=== PATIENT | female | born 1960 | race Caucasian/White ===

== ENCOUNTER 2016-06-10 19:51 | Emergency (ER) | payer BC ==
--- NOTE | 2016-06-10 22:52 | ER Document Report ---
ED General - General Chief Complaint: Flu Symptoms Stated Complaint: FEVER,HEADACHE,SORE THROAT,COUGH Time seen by provider: 22:50 Notes: Patient is a 56-year-old female that comes emergency department for chief complaint of 2 days of cough, fever, sinus pressure and congestion, ear pain bilaterally, and sore throat. She also reports pain in the front of her lymph nodes on her neck. These pain, shortness of breath, headache. She works at a daycare. Asked medical history of a defibrillation, treated, on eliquis. TRAVEL OUTSIDE OF THE [place] IN LAST 30 DAYS: Codi Bertrand was in [place] recently - Related Data Allergies/Adverse Reactions: Sulfa (Sulfonamide Antibiotics) Allergy (Intermediate, Verified 11/10/13 18:41) Past Medical History - General Information source: Patient - Social History Smoking Status: Never Smoker Frequency of alcohol use: None Drug Abuse: None Lives with: Family Family History: Arthritis, CAD, Hyperlipidemia, Hypertension, Malignancy Patient has suicidal ideation: No Patient has homicidal ideation: No - Past Medical History Cardiac Medical History: Reports: Hx Atrial Fibrillation, Hx Hypertension Neurological Medical History: Reports: Hx Migraine Renal/ Medical History: Denies: Hx Peritoneal Dialysis GI Medical History: Reports: Hx Ulcer Psychiatric Medical History: Reports: Hx Depression Past Surgical History: Reports: Hx Section - X2 - Immunizations Immunizations up to date: No Hx Diphtheria, Pertussis, Tetanus Vaccination: No Review of Systems - Review of Systems Constitutional: See HPI EENT: See HPI Cardiovascular: No symptoms reported Respiratory: See HPI Gastrointestinal: No symptoms reported Genitourinary: No symptoms reported Female Genitourinary: No symptoms reported Musculoskeletal: No symptoms reported Skin: No symptoms reported Hematologic/Lymphatic: No symptoms reported Neurological/Psychological: No symptoms reported Physical Exam - Vital signs Vitals: Temp Pulse Resp BP Pulse Ox 99.9 F 81 16 149/74 H 98 06/10/16 20:38 06/10/16 20:38 06/10/16 20:38 06/10/16 20:38 06/10/16 20:38 Interpretation: Normal - General General appearance: Appears well, Alert In distress: None - HEENT Head: Normocephalic, Atraumatic Eyes: Normal Conjunctiva: Normal Extraocular movements intact: Yes Eyelashes: Normal Pupils: PERRL Ears: Normal External canal: Normal Tympanic membrane: Serous effusion - Borderline right-sided serous effusion Sinus: Tenderness - Vague nonspecific mild tenderness, no notable tenderness. No: Frontal Nasal: Other - Sinus congestion and nasal congestion Mouth/Lips: Normal Mucous membranes: Normal Pharynx: Erythema - Mild, some postnasal drip. No: Retropharyngeal abscess, Tonsillar hypertrophy, Uvular edema, Potential airway comprom. Neck: Normal - Respiratory Respiratory status: No respiratory distress. No: Respiratory distress, Retractions, Tachypnea Chest status: Nontender Breath sounds: Nonproductive cough - Occasional. No: Decreased air movement, Wheezing Chest palpation: Normal - Cardiovascular Rhythm: Regular. No: Irregularly irregular, Tachycardia Heart sounds: Normal auscultation, S1 appreciated, S2 appreciated Murmur: No - Abdominal Inspection: Normal Distension: No distension Bowel sounds: Normal Tenderness: Nontender Organomegaly: No organomegaly - Back Back: Normal, Nontender - Extremities General upper extremity: Normal inspection, Nontender, Normal color, Normal ROM , Normal temperature General lower extremity: Normal inspection, Nontender, Normal color, Normal ROM , Normal temperature, Normal weight bearing. No: Edith's sign - Neurological Neuro grossly intact: Yes Cognition: Normal Orientation: AAOx4 [place] Coma Scale Eye Opening: Spontaneous [place] Coma Scale Verbal: Oriented [place] Coma Scale Motor: Obeys Commands [place] Coma Scale Total: 15 Speech: Normal Motor strength normal: LUE, RUE, LLE, RLE Sensory: Normal - Psychological Associated symptoms: Normal affect, Normal mood - Skin Skin Temperature: Warm Skin Moisture: Dry Skin Color: Normal Course - Re-evaluation Re-evalutation: Patient is not tachycardic or hypotensive, or febrile. Patient is actually very well appearing with complaints of sinus congestion and pressure, what appears to be postnasal drip on exam, intermittent cough. Clear lungs on auscultation, unremarkable pharynx, soft abdomen, no complaints of chest pain, no nuchal rigidity or complaints of headache. Chest x-ray unremarkable, strep negative. Discussed with patient, after discussion will cover with doxycycline for sinus infection and to prevent pneumonia based on patient's ongoing and worsening symptoms. Recommended close primary care follow-up, discussed return precautions in detail, patient states satisfaction and agreement. - Vital Signs Vital signs: Temp Pulse Resp BP Pulse Ox 98.3 F 59 L 18 133/60 H 99 06/11/16 02:25 06/11/16 02:25 06/11/16 02:25 06/11/16 02:25 06/11/16 02:25 Discharge - Discharge Clinical Impression: Cough Sinusitis Qualifiers: Sinusitis location: frontal Chronicity: acute Recurrence: non-recurrent Qualified Code(s): J01.10 - Acute frontal sinusitis, unspecified Pharyngitis Qualifiers: Pharyngitis/tonsillitis etiology: unspecified etiology Qualified Code(s): J02.9 - Acute pharyngitis, unspecified Condition: Stable Disposition: HOME, SELF-CARE Additional Instructions: Strep test is negative, chest x-ray does not show pneumonia. Take doxycycline as directed for sinus infection and prevent development of pneumonia. Take Flonase as directed, take Tylenol or ibuprofen for fever, drink plenty of fluids and rest. Follow-up with your provider within the next several days. Return the emergency department for any concerning worsening symptoms including difficulty breathing. Prescriptions: Doxycycline Hyclate 100 mg PO BID #14 capsule
[2016-06-11] MEDS ORDERED: ACETAMINOPHEN 325 MG TABLET PO ONE (00:09)
[2016-06-11] MEDS ORDERED: DOXYCYCLINE HYCLATE 100 MG TABLET PO ONE (01:30)
[2016-06-11 02:26] VITALS: BP 133/60
== END 2016-06-11 01:35 | disposition home or self-care (01) ==
LOC: ER 19:51
DX: J01.10 Acute frontal sinusitis, unspecified (principal); R05 Cough; J02.9 Acute pharyngitis, unspecified; R50.9 Fever, unspecified; R51 Headache; I48.91 Unspecified atrial fibrillation; I10 Essential (primary) hypertension; Z79.02 Long term (current) use of antithrombotics/antiplatelets; Z88.2 Allergy status to sulfonamides
CPT/HCPCS: 71020; 87070; 87077; 87880; 99283

== ENCOUNTER 2016-09-03 18:50 | Emergency (ER) | payer BC ==
--- NOTE | 2016-09-03 20:24 | RADIOLOGY REPORT (SQ) ---
EXAM DESCRIPTION: CHEST SINGLE VIEW COMPLETED DATE/TIME: 09/03/2016 8:14 pm REASON FOR STUDY: chest pain COMPARISON: 06/10/2016 EXAM PARAMETERS: NUMBER OF VIEWS: One view. TECHNIQUE: Single frontal radiographic view of the chest acquired. RADIATION DOSE: NA LIMITATIONS: None. FINDINGS: LUNGS AND PLEURA: No opacities, masses or pneumothorax. No pleural effusion. MEDIASTINUM AND HILAR STRUCTURES: No masses. Contour normal. HEART AND VASCULAR STRUCTURES: Heart normal in size. Normal vasculature. BONES: No acute findings. HARDWARE: None in the chest. OTHER: No other significant finding. IMPRESSION: NO ACUTE RADIOGRAPHIC FINDING IN THE CHEST. TECHNICAL DOCUMENTATION: JOB ID: [id number]
[2016-09-03] MEDS ORDERED: KETOROLAC TROMETHAMINE INJ/PF 30 MG/1 ML SDV IV ONE (20:31)
[2016-09-03] MEDS ORDERED: NORMAL SALINE 1000 ML 1,000 ML IV ONE (20:31)
--- NOTE | 2016-09-03 20:35 | ER Document Report ---
ED General - General Chief Complaint: Palpitations Stated Complaint: CHEST PAIN Time Seen by Provider: 09/03/16 19:44 Notes: Patient is a 56-year-old female with a past medical history of atrial fibrillation, bradycardia, who presents with multiple complaints. Patient primarily concerned complains of palpitations and episodes of bradycardia throughout the day today. Patient states she has had similar symptoms in the past but they typically do not last this long. Nothing improves or worsens her symptoms. States she has been taking all medications as directed. She has not seen her primary doctor or crm functional analyst regarding today's concerns. She does also complain of ongoing left flank pain which is a dull, constant, aching pain. Nothing improves or worsens the pain. She states she was recently treated with doxycycline for urinary tract infection is concerned that it may have not cleared. She has had several episodes of vomiting today which again she also notes that her baseline. TRAVEL OUTSIDE OF THE [place] IN LAST 30 DAYS: No - Related Data Allergies/Adverse Reactions: Cephalosporins Allergy (Intermediate, Verified 09/03/16 22:48) Anaphylaxis Sulfa (Sulfonamide Antibiotics) Allergy (Intermediate, Verified 09/03/16 22:48) Anaphylaxis Past Medical History - General Information source: Patient - Social History Smoking Status: Never Smoker Frequency of alcohol use: None Drug Abuse: None Lives with: Family Family History: Arthritis, CAD, Hyperlipidemia, Hypertension, Malignancy - Past Medical History Cardiac Medical History: Reports: Hx Atrial Fibrillation, Hx Hypertension Neurological Medical History: Reports: Hx Migraine Renal/ Medical History: Denies: Hx Peritoneal Dialysis GI Medical History: Reports: Hx Ulcer Psychiatric Medical History: Reports: Hx Depression Past Surgical History: Reports: Hx Section - X2 - Immunizations Immunizations up to date: No Hx Diphtheria, Pertussis, Tetanus Vaccination: No Review of Systems - Review of Systems Notes: Constitutional: Negative for fever. HENT: Negative for sore throat. Eyes: Negative for visual changes. Cardiovascular: Negative for chest pain. Positive for palpitations Respiratory: Negative for shortness of breath. Gastrointestinal: Positive for vomiting. Positive flank pain Genitourinary: Negative for dysuria. Musculoskeletal: Negative for back pain. Skin: Negative for rash. Neurological: Negative for headaches, weakness or numbness. 10 point ROS negative except as marked above and in HPI. Physical Exam - Vital signs Vitals: Temp Pulse Resp BP Pulse Ox 98.0 F 66 16 160/90 H 98 09/03/16 19:05 09/03/16 19:05 09/03/16 19:05 09/03/16 19:05 09/03/16 19:05 Interpretation: Hypertensive Notes: PHYSICAL EXAMINATION: GENERAL: Well-appearing, well-nourished and in no acute distress. HEAD: Atraumatic, normocephalic. EYES: Pupils equal round and reactive to light, extraocular movements intact, sclera anicteric, conjunctiva are normal. ENT: nares patent, oropharynx clear without exudates. Moderately dry mucous membranes. NECK: Normal range of motion, supple without lymphadenopathy LUNGS: Breath sounds clear to auscultation bilaterally and equal. No wheezes rales or rhonchi. HEART: Regular rate and rhythm without murmurs ABDOMEN: Soft, nontender, normoactive bowel sounds. No guarding, no rebound. No masses appreciated. Left CVA tenderness to palpation EXTREMITIES: Normal range of motion, no pitting or edema. No cyanosis. NEUROLOGICAL: No focal neurological deficits. Moves all extremities spontaneously and on command. PSYCH: Normal mood, normal affect. SKIN: Warm, Dry, normal turgor, no rashes or lesions noted. Course - Re-evaluation Re-evalutation: 09/03/16 20:32 Patient presents with palpitations but is in no acute distress. She has a history of intermittent atrial fibrillation with associated bradycardia and [place] [facility] [place] Vitals within normal limits at time of arrival. EKG unremarkable with a normal sinus rhythm. Laboratories are unremarkable. Patient denies any chest pain, shortness of breath, or vomiting. At this time based on exam and history do not suspect a new onset arrhythmia, ACS, acute pulmonary embolus, aortic dissection. Patient does have a history of paroxysmal atrial fibrillation although she is not in this rhythm at this time. Patient's urinalysis does however demonstrate findings consistent with an acute urinary tract infection given that she does have left-sided flank tenderness on examination this is consistent with a diagnosis of pyelonephritis. She was given a dose of IV ceftriaxone here in the emergency department go home on a 5 day course of cephalexin. She did also receive IV fluids and antiemetics while here in the emergency department. 09/03/16 22:37 I was informed by the nurse came to the patient that shortly after beginning the ceftriaxone patient began to develop a sensation of throat scratching and throat closing. Benadryl was administered and this did not improve her symptoms so at 0.5 mg of IM epinephrine will be administered. Patient has no prior cephalosporin allergy but given her reaction to ceftriaxone will obviously not be able to discharge her home on cephalexin. Will continue to monitor closely at this time as patient is having symptoms concerning for possible anaphylactic reaction. 09/03/16 22:52 Patient symptoms have now resolved after 0.5 mg of IM epinephrine. I have informed the patient that she is severely allergic to cephalosporins and that she cannot take any of these medications in the future. She will be going home on levofloxacin and has been given her first dose here - Vital Signs Vital signs: Temp Pulse Resp BP Pulse Ox 98.0 F 66 16 160/90 H 98 09/03/16 19:05 09/03/16 19:05 09/03/16 19:05 09/03/16 19:05 09/03/16 19:05 - Laboratory Result Diagrams: 09/03/16 20:24 09/03/16 20:24 Laboratory results interpreted by me: 09/03/16 20:24 Ur Leukocyte Esterase LARGE H - Diagnostic Test Radiology reviewed: Image reviewed, Reports reviewed Radiology results interpreted by me: 09/03/16 20:34 Chest x-ray: No acute infiltrate or pneumothorax - EKG Interpretation by Me Additional EKG results interpreted by me: 09/03/16 20:35 Normal sinus rhythm. Rate 67. No ST elevations or depressions. QTC is 427. Discharge - Discharge Clinical Impression: Palpitations Urinary tract infection Qualifiers: Urinary tract infection type: acute pyelonephritis Qualified Code(s): N10 - Acute pyelonephritis Anaphylactic reaction Qualifiers: Encounter type: initial encounter Qualified Code(s): T78.2XXA - Anaphylactic shock, unspecified, initial encounter Condition: Good Disposition: HOME, SELF-CARE Additional Instructions: You have been diagnosed with a condition called pyelonephritis which is an infection involving your kidneys and bladder. You have been given a dose of antibiotics here in the emergency department to help begin to treat this infection. Your also being sent home on antibiotics. Please start taking these later on today when you fill the prescription. Complete the course even if you feel better. Please return if you have persistent vomiting, pass out, have worsening pain, become unable to tolerate fluids, or have any other symptoms that are concerning to you. Please follow-up with your primary care physician in the next 24-48 hours. Please follow-up with your primary care doctor or a crm functional analyst regarding your palpitations. Return if you develop chest pain, shortness of breath, pass out, or have any other symptoms that are worrisome to you. Prescriptions: Levofloxacin 500 mg PO DAILY #5 tablet Ondansetron [Zofran Odt 4 mg Tablet] 1 - 2 tab PO Q4H PRN #15 tab.rapdis PRN Reason: For Nausea/Vomiting
[2016-09-03] MEDS ORDERED: ONDANSETRON HCL INJ/PF 4 MG/2 ML SDV IV ONE (20:42)
[2016-09-03 20:49] LABS: ABSOLUTE BASOPHILS # (AUTO) 0.1 10^3/uL (0.0-0.2); ABSOLUTE EOSINOPHILS # (AUTO) 0.2 10^3/uL (0.0-0.6); ABSOLUTE LYMPHOCYTES (AUTO) 2.9 10^3/uL (0.5-4.7); ABSOLUTE MONOCYTES (AUTO) 0.6 10^3/uL (0.1-1.4); ABSOLUTE NEUT (AUTO) 3.5 10^3/uL (1.7-8.2); BASOPHILS % (AUTO) 0.8 % (0-2); EOSINOPHILS % (AUTO) 2.5 % (0-6); HEMATOCRIT 43.6 % (36.0-47.0); HEMOGLOBIN 14.6 g/dL (12.0-15.5); HGB HCT DIFFERENCE 0.2; LYMPHOCYTES % (AUTO) 39.7 % (13-45); MEAN CORPUSCULAR HEMOGLOBIN 30.1 pg (27.0-33.4); MEAN CORPUSCULAR HGB CONC 33.4 g/dL (32.0-36.0); MEAN CORPUSCULAR VOLUME 90 fl (80-97); MONOCYTES % (AUTO) 8.4 % (3-13); RED BLOOD COUNT 4.84 10^6/uL (3.72-5.28); RED CELL DISTRIBUTION WIDTH 13.8 % (11.5-14.0); SEGMENTED NEUTROPHILS % (AUTO) 48.6 % (42-78); WHITE BLOOD COUNT 7.2 10^3/uL (4.0-10.5)
[2016-09-03 20:58] LABS: AMORPHOUS SEDIMENT,URINE TRACE /HPF; APPEARANCE,URINE SLIGHTLY-CLOUDY; BILIRUBIN,URINE NEGATIVE (NEGATIVE); GLUCOSE, URINE NEGATIVE (NEGATIVE); KETONES,URINE NEGATIVE (NEGATIVE); LEUKOCYTE ESTERASE,URINE LARGE (NEGATIVE); NITRITE,URINE NEGATIVE (NEGATIVE); PROTEIN,URINE NEGATIVE (NEGATIVE); URINE SPECIFIC GRAVITY 1.008; UROBILINOGEN,URINE NEGATIVE mg/dL (<2.0)
[2016-09-03 21:10] LABS: ANION GAP 13 (5-19); BLOOD UREA NITROGEN 13 mg/dL (7-20); CALCIUM 9.4 mg/dL (8.4-10.2); CARBON DIOXIDE 23 mmol/L (22-30); CHLORIDE 106 mmol/L (98-107); CREATININE RESULT 0.94 mg/dL (0.52-1.25); GLUCOSE 91 mg/dL (75-110); POTASSIUM 4.1 mmol/L (3.6-5.0); SODIUM 141.6 mmol/L (137-145)
[2016-09-03] MEDS ORDERED: CEFTRIAXONE 1 GM/D5W RTU 50 ML IV ONE (21:41)
[2016-09-03] MEDS ORDERED: DIPHENHYDRAMINE HCL 50 MG/ML VIAL IV ONE (22:24)
[2016-09-03] MEDS ORDERED: DIPHENHYDRAMINE HCL 50 MG/ML VIAL ONE (22:24)
[2016-09-03] MEDS ORDERED: EPINEPHRINE INJ/PF 1 MG/1 ML AMPULE SUBCUT ONE (22:38)
[2016-09-03] MEDS ORDERED: EPINEPHRINE INJ/PF 1 MG/1 ML AMPULE ONE (22:39)
[2016-09-03] MEDS ORDERED: LEVOFLOXACIN 500 MG TABLET PO ONE (22:52)
[2016-09-04 00:15] VITALS: BP 113/54
--- NOTE | 2016-09-04 11:10 | EKG REPORT ---
SEVERITY:- NORMAL ECG - SINUS RHYTHM : Confirmed by: Lauren Contreras MD 04-Sep-2016 11:09:43
== END 2016-09-04 00:20 | disposition home or self-care (01) ==
LOC: ER 18:50
DX: N10 Acute pyelonephritis (principal); T78.2XXA Anaphylactic shock, unspecified, initial encounter; R00.2 Palpitations; R07.9 Chest pain, unspecified; I48.91 Unspecified atrial fibrillation; R00.1 Bradycardia, unspecified
CPT/HCPCS: 93005; 99285; 96372; 96361; 96375; 96365; 36415; 87086; 85025; 80048; 81001; 84484; 71010; 93010; J1200; J0171; J1885; J2405; J7030; J0696

== ENCOUNTER 2017-07-18 19:01 | Emergency (ER) | payer BC ==
[2017-07-18 19:57] LABS: APPEARANCE,URINE CLEAR; BILIRUBIN,URINE NEGATIVE (NEGATIVE); COLOR,URINE YELLOW; GLUCOSE, URINE NEGATIVE (NEGATIVE); KETONES,URINE NEGATIVE (NEGATIVE); LEUKOCYTE ESTERASE,URINE MODERATE (NEGATIVE); NITRITE,URINE NEGATIVE (NEGATIVE); PROTEIN,URINE NEGATIVE (NEGATIVE); URINE SPECIFIC GRAVITY 1.017
== END 2017-07-18 20:45 | disposition left against medical advice (07) ==
LOC: ER 19:01
DX: Z53.21 Procedure and treatment not carried out due to patient leaving prior to being seen by health care provider (principal)
CPT/HCPCS: 81001